=== PATIENT | male | born 1980 | race Caucasian/White ===

== ENCOUNTER 2023-12-10 15:34 | Outpatient (CLI) | payer BC, SELFPAY | END 2023-12-10 15:35 | disposition home or self-care (01) | PROVIDERS: PCP Emergency Medicine; Visit Provider Emergency Medicine | DX: I10 Essential (primary) hypertension (principal); K62.5 Hemorrhage of anus and rectum; Z13.220 Encounter for screening for lipoid disorders | CPT/HCPCS: 80053; 80061; 82728 ==

== ENCOUNTER 2024-01-07 08:21 | Outpatient (CLI) | payer BC, SELFPAY | END 2024-01-07 08:22 | disposition home or self-care (01) | PROVIDERS: PCP Emergency Medicine; Visit Provider Emergency Medicine | DX: R17 Unspecified jaundice (principal) | CPT/HCPCS: 80076; 85045 ==

== ENCOUNTER 2025-02-08 11:45 | Outpatient (RCR) | payer BC, SELFPAY | END 2025-06-08 23:59 | disposition home or self-care (01) | PROVIDERS: PCP Emergency Medicine; Visit Provider Physician Assistant | DX: M54.12 Radiculopathy, cervical region (principal); R20.2 Paresthesia of skin; Z51.89 Encounter for other specified aftercare | CPT/HCPCS: 97012; 97032; 97110; 97140; 97161 ==

== ENCOUNTER 2025-08-23 14:19 | Outpatient (CLI) | payer BC, SELFPAY | END 2025-08-23 14:20 | disposition home or self-care (01) | LOC: LKVREF 14:19 | PROVIDERS: PCP Emergency Medicine; Visit Provider Family Medicine | DX: I10 Essential (primary) hypertension (principal) | CPT/HCPCS: 80048 ==